=== PATIENT | female | born 1955 | race Caucasian/White ===

== ENCOUNTER 2017-10-20 11:01 | Day surgery (SDC) | payer OTHER ==
[~2017-10-20] VITALS: Ht 170.2 cm; Wt 89.8 kg
[~2017-10-20 11:01] MED LIST: ALBU0.63 NEB; AMLO5TAB2 PO; ATOR40TA16 PO; FLUO40CA PO; FLUT50SP EACH NARE; FURO40TA PO; HYDR1CAP30 PO; LACT10SO PO; LEVO500T8 PO; LISI-519 PO; METO50TA PO; PANT40TA3 PO; SYMB160A INH; VENTAER INH
[2017-10-20] MEDS ORDERED: IOHEXOL 350 MG/ML 50 ML BTL (for Cath Lab) OTHER ONE (11:02)
[2017-10-20] MEDS ORDERED: SODIUM CHLOR 0.9% 1000 ML INJ 1,000 ML IV SCH (11:30)
[2017-10-20 11:50] VITALS: BP 117/72; PULSE 70; RESP 18; TEMP 98.2; O2SAT 96
[2017-10-20] MEDS ORDERED: XOPEAER4 INH (12:00)
[2017-10-20] MEDS ORDERED: RANI150T PO (12:00)
[2017-10-20] MEDS ORDERED: potassium PO (12:00)
[2017-10-20 12:04] LABS: AUTOMATED NEUTROPHIL # 2.8 TH/MM3 (1.8-7.7); BASOPHIL % 0.7 % (0.0-2.0); EOSINOPHIL # 0.2 TH/MM3 (0-0.4); EOSINOPHIL % 3.4 % (0.0-4.0); HEMATOCRIT 38.9 % (35.0-46.0); HEMOGLOBIN 13.2 GM/DL (11.6-15.3); LYMPH % 43.3 % (9.0-44.0); LYMPHOCYTE # 2.8 TH/MM3 (1.0-4.8); MEAN CELL VOLUME 93.1 FL (80.0-100.0); MEAN CORPUSCULAR HEMOGLOBIN 31.6 PG (27.0-34.0); MEAN CORPUSCULAR HGB CONC 33.9 % (32.0-36.0); MEAN PLATELET VOLUME 7.9 FL (7.0-11.0); MONOCYTE # 0.6 TH/MM3 (0-0.9); NEUT % 43.6 % (16.0-70.0); PLATELET COUNT 249 TH/MM3 (150-450); RED BLOOD COUNT 4.17 MIL/MM3 (4.00-5.30); WHITE BLOOD COUNT 6.4 TH/MM3 (4.0-11.0)
[2017-10-20 12:22] LABS: BICARBONATE 28.1 MEQ/L (21.0-32.0); CALCIUM 9.1 MG/DL (8.5-10.1); CREATININE 0.75 MG/DL (0.50-1.00)
[2017-10-20] MEDS ORDERED: HEPARIN-NS/PF FLUSH BAG 2,000 ML IV FLUSH ONE (12:55)
[2017-10-20] MEDS ORDERED: LIDOCAINE HCL 1% PF 30 ML VIAL ONE (12:58)
[2017-10-20] MEDS ORDERED: NITROGLYCERIN INJ 5 ML ONE (13:01)
[2017-10-20] MEDS ORDERED: VERAPAMIL HCL 5 MG/2 ML VIAL ONE (13:01)
[2017-10-20] MEDS ORDERED: HEPARIN SODIUM - IV 10,000 UNITS/10 ML VIAL ONE (13:01)
[2017-10-20] MEDS ORDERED: MIDAZOLAM HCL 2 MG/2 ML VIAL ONE (13:01)
--- NOTE | 2017-10-20 13:38 | CATHPROC ---
[facility] HIS Report Study Information Study Number Admission Scheduled Start Study Start [id number] Oct 20 2017 11:01AM 10/20/2017 Oct 20 2017 12:37PM [facility] Cardiac Catheterization Admit Source Facility Department Other [facility]cher Physician and Clinical Staff Initial Naa Jones Post Tensioning Ironworker Eric Barrientos,AMY Post Tensioning Ironworker Anitra Farias BSN Recorder Leah Martell ,RT(R) Recorder Enrique Merida,RT(R) Scrub Masoud Oquendo RCIS(BS) Procedures Performed Procedure Location (Site) Vessel Name Coronary Angiograms LCA Left Coronary Coronary Angiograms RCA Right Coronary L Heart Cath Wire insertion Radial (right) Radial Art. Equipment Time Engineering Mgr Description Size Mfg Part Number Used/Scraped TRANSDUCER, TRUWAVE [id number] 12:43 DIEHL HART * Used W/STOCKCOCK *[id number] *[id number] 12:43 [employer] PACK, CCL CUSTOM * Used *[id number] 12:43 [employer] SUPPORT, ARTERIAL ADULT 77797 *[id number] Used [id number] 12:43 [employer] PACER PEN, SKIN DUAL W/ RULER * Used *[id number] BAND, RADIAL COMPRESSION TR [id number] 13:29 [employer] MEDICAL 29CM Used LARGE 29 *[id number] 12:43 [employer] WIRE, EXCHANGE 260CM 3MMJ 260CM Used *[id number] 12:43 NAMIC MANIFOLD, 4 PORT * Used *[id number] 12:43 NAMIC TUBING, HIGH PRESSURE 20" 20" Used *[id number] 12:43 NYCOMED OMNIPAQUE, 350 MG, 150ML 150ML [id number] Used [id number] 12:43 [employer] MED[employer] BLANKET,WARM AIR CCL * Used *[id number] CATHETER, FR5 OPTITORQUE [id number] 13:21 [employer] FR 5 Used RADIAL TIG 4.0 *[id number] SHEATH, FR6 TRANSRADIAL RM*[id number] 12:43 [employer] FR 6 Used SLENDER 10CM *[id number] History: Current Medications Medication Dosage/Unit Route Frequency Last Date/Time Taken Statins (any) LISINOPRIL LOPRESSOR History: Allergies Allergy Reaction codeine History: Risk Factors Family History of Hypertension Dyslipidemia Previous PR Previous Heart Failure Premature CAD Yes Yes Yes No Yes Prior Valve Prior PCI Prior CABG Surgery No No No Cerebrovascular Peripheral Artery Chronic Lung On Dialysis Diabetes Disease Disease Disease No No No Yes No History: Risk Factors Selection Items Current Smoker History: Symptoms/Diagnosis Selection Items SOB History: Stress Tests Stress or Imaging Studies Performed No History: Other Disease Selection Items COPD Gerd HTN History: Other Current Smoker Method Packs a Day Years Used Pack Years Yes Cigarettes 1 45 45 Labs Hgb (g/dl) Hct (%) RBC (MIL/MM3) WBC (l/cumm) Platelets (thousands) 11.60-17.00 35.00-51.00 4.00-5.90 4.00-11.00 150.00-450.00 13.2 38.9 4.1 6.4 249 Glucose (mg/dl) BUN (mg/dl) Creatinine (mg/dl) BUN:Creatinine (1:x) 74.00-106.00 7.00-18.00 0.50-1.30 10.00-20.00 100 14 0.7 20 Na (meq/l) K (meq/l) Cl (meq/l) CO2 (mmol/L) Ca (mg/dl) 136.00-145.00 3.50-5.10 98.00-107.00 21.00-32.00 8.50-10.10 140 4 105 28.1 9.1 PT (sec) PTT (sec) INR (PTT:PT) 9.80-11.60 24.30-30.10 0.90-1.10 10 28 1 CPK-MB (ng/ML) 0.50-3.60 Not Drawn Medication Medication Total Dose (Bolus/Oral) Medication Total Dosage/Unit 1% XYLOCAINE 5 mL FENTANYL 25 mcg RADIAL COCKTAIL 5 mL (Bolus) VERSED 1 mg Medications (Bolus/Oral) Medication Time Given Dosage/Unit Administered By Reason VERSED 10/20/2017 1:18:09 PM 1 mg Eric Barrientos 1 mg VERSED given in lab by Eric Barrientos RN in Left Antecubital via Peripheral IV. 1% XYLOCAINE 10/20/2017 1:18:34 PM 5 mL Naa Boggs 5 mL 1% XYLOCAINE given in lab by Naa Boggs in Right Radial via Subcutaneous. Ntg 200mcg Verapamil 2.5mg Heparin RADIAL COCKTAIL 10/20/2017 1:19:51 PM 5 mL (Bolus) Naa Boggs 2500U 5 mL (Bolus) RADIAL COCKTAIL given in lab by Naa Boggs in Right Radial via Radial. Using [Solutio n Name]. Ordered by Naa Boggs. Reason: Ntg 200mcg Verapamil 2.5mg Heparin 2500U. FENTANYL 10/20/2017 1:22:08 PM 25 mcg Eric Barrientos 25 mcg FENTANYL given in lab by Eric Barrientos, RN in Left Antecubital via Peripheral IV. Ordered by Naa Boggs. Medication (Drip) Medication Time Given Dosage/Unit Concentration/Unit Diluent (ml) Solutio n IV Solutions 10/20/2017 12:50:17 PM 0 mL (IV) 500 NaCl .9 IV Solutions given in lab by Eric Barrientos RN in Left Antecubital via Peripheral IV. Pump/Drip Flow = 20 ml/hr using NaCl .9. Initial Case Assessment Cardiovascular HR Rhythm NIBP Chest Pain 73 Sinus 141/50 0 Edema Present Skin color Skin None Normal Warm Dry Circulatory - Right Pulses Dorsalis Pedis Femoral Radial 2 2 2 Scale (0,1,2,3,4,d) Scale (0,1,2,3,4,d) Neurological State Oriented to time-place- Alert Moves all extremities person Respiration - General Respiration Rate SpO2 (%) O2 (lpm) (B/min) 12 96 0 Final Case Assessment Cardiovascular HR Rhythm NIBP Chest Pain 74 Sinus 129/76 0 Edema Present Skin color Skin None Normal Warm Dry Circulatory - Right Pulses Dorsalis Pedis Femoral Radial 2 2 2 Scale (0,1,2,3,4,d) Scale (0,1,2,3,4,d) Neurological State Oriented to time-place- Alert Moves all extremities person Respiration - General Respiration Rate SpO2 (%) O2 (lpm) (B/min) 31 93 0 Chronological Log Time Study Chronological Log 12:47:18 Patient arrived via Bed. 12:48:25 Patient Name, D.O.B, / Armband Verified By R.N. 12:48:26 Pre-op and post- op instructions given; patient acknowledges understanding of instructions. 12:48:27 Verbal Stimulation=2 Physical Stimulation=2 Airway=2 Respiration=2 TOTAL=8. (0=absent, 1=li mited, 2=present) 12:49:42 Presedation assessment performed by [facility] [employer] [facility] RN. 12:49:44 Allens test performed on the right radial and ulnar artery. 12:49:46 Patient has been NPO for More than 6Hrs. 12:49:48 Skin Breakdown- none per patient. 12:49:58 Patient Warmer Placed on the Table. 12:50:00 Cu[place]htemoc Prominences Protected 12:50:01 A # 20 IV was noted in the Antecubital (left). Grade = 0 IV Solutions given in lab by Eric Barrientos, AMY in Left Antecubital via Peripheral IV. Pump/Dri p Flow = 20 ml/hr using 12:50:17 NaCl .9. 12:50:18 History and physical on the chart or being dictated. Assessment: Initial Case, HR=73 BPM, Rhythm=Sinus, TLXZ=119/50 mmhg, Chest Pain=0, Edema=None, Color=Normal, Skin = Warm, Dry 12:50:41 Right Pulses: Raymundo Ped=2, Femoral=2, Radial=2 Neurological: State=Alert, Ox3, ROCK Respiration: Resp=12 B/min, SpO2=96 %, O2=0 lpm Vitals capture started with the following parameters, Patient=Adult, Interval=5 min, Initial Pr udqqpn=729 mmHg, 12:56:11 Deflation Rate=5 mmHg, Cuff placed on Left Arm 12:56:13 Reference ECG taken 12:56:52 HR=75 bpm, TFUM=539/50 mmhg, SpO2=96.0 %, Resp=12 B/min, Pain=0, Tanya=10, Lynn=2 13:00:43 Left Radial and groin(s) prepped with 2% chlorhexidine, and draped after a 3 min. waiting t rangel. 13:01:43 HR=72 bpm, NRSQ=678/90 mmhg, SpO2=97.0 %, Resp=13 B/min, Pain=0, Tanya=10, Lynn=2 13:05:48 Pressure channel 1 zeroed. 13:06:48 HR=71 bpm, RLSO=046/81 mmhg, SpO2=97.0 %, Resp=15 B/min, Pain=0, Tanya=10, Lynn=2 13:06:57 MD paged 13:11:49 HR=70 bpm, GLKZ=274/86 mmhg, SpO2=97.0 %, Resp=17 B/min, Pain=0, Tanya=10, Lynn=2 13:13:43 MD arrived. 13:16:44 HR=68 bpm, NVQS=342/81 mmhg, SpO2=96.0 %, Resp=20 B/min, Pain=0, Tanya=10, Lynn=2 Time Out. Correct patient, correct procedure, correct physician, power injector not loaded with contrast with surgical 13:17:55 team present. Time Out Concurred by MD and individual staff in procedure. 13:18:08 Case Start 13:18:09 1 mg VERSED given in lab by Eric Barrientos, RN in Left Antecubital via Peripheral IV. 13:18:34 5 mL 1% XYLOCAINE given in lab by Naa Boggs in Right Radial via Subcutaneous. 13:19:32 Access site was Radial Artery. A SHEATH, FR6 TRANSRADIAL SLENDER 10CM FR 6 was advanced into the Radial (right) using the Perc utaneous 13:19:39 technique. 5 mL (Bolus) RADIAL COCKTAIL given in lab by Naa Boggs in Right Radial via Radial. Using [S olution Name]. Ordered 13:19:51 by Naa Boggs. Reason: Ntg 200mcg Verapamil 2.5mg Heparin 2500U. A CATHETER, FR5 OPTITORQUE RADIAL TIG 4.0 FR 5 was advanced over a wire. OMNIPAQUE, 350 MG, 150 ML 150ML 13:20:41 was used for injections. 13:21:45 HR=76 bpm, QNXF=448/85 mmhg, SpO2=95.0 %, Resp=14 B/min, Pain=0, Tanya=10, Lynn=2 13:21:58 The LCA was injected and visualized at various angles. contrast used. 13:22:08 25 mcg FENTANYL given in lab by Eric Barrientos, RN in Left Antecubital via Peripheral IV. O rdered by Naa Boggs. Recorded Pressure: Ao, HR=82, Condition=Condition 1 13:22:40 (Aorta) Ao 120/77/97 After removing the current catheter a JR 5.0 INFINITI CATHETER FR 6 was advanced over a WIRE, E XCHANGE 260CM 13:24:31 3MMJ 260CM. 13:25:53 The RCA was injected and visualized at various angles. OMNIPAQUE, 350 MG, 150ML 150ML use d. 13:26:46 HR=77 bpm, ABAM=068/76 mmhg, SpO2=92.0 %, Resp=19 B/min, Pain=0, Tanya=10, Lynn=2 13:26:55 A WIRE, EXCHANGE 260CM 3MMJ 260CM was inserted via Radial (right). Recorded Pressure: LV, HR=79, Condition=Condition 1 13:27:36 (Left Ventricle) LV 112/5/13 Recorded Pressure: LV, Ao, HR=78, Condition=Condition 1 13:27:57 (Left Ventricle) LV 112/5/13, (Aorta) Ao 111/62/86 13:28:12 Catheter was removed 13:28:51 Case End Assessment: Final Case, HR=74 BPM, Rhythm=Sinus, CYLF=922/76 mmhg, Chest Pain=0, Edema=None, Color=Normal, Skin = Warm, Dry 13:29:17 Right Pulses: Raymundo Ped=2, Femoral=2, Radial=2 Neurological: State=Alert, Ox3, ROCK Respiration: Resp=31 B/min, SpO2=93 %, O2=0 lpm 13:30:12 No case complications noted. 13:30:13 Cine recording checked. 13:30:52 Bedside Report will be given. 13:31:17 A Left Heart Cath was performed. 13:31:45 HR=70 bpm, BTKP=976/76 mmhg, SpO2=92.0 %, Resp=19 B/min, Pain=0, Tanya=10, Lynn=2 13:33:55 Vitals capture stopped. 13:35:39 [facility] - Contrast Media Used In Study Contrast Total Opened (mL) Total Used (mL) Total Wasted (mL) Omnipaque 150 30 120 End Study - Maximum Contrast Load Max Contrast Load (mL) 641.6 End Study - Radiation Exposure Fluoro Time (minutes) 3.8 End Study - Patient Disposition Complications Transferred To Interventional Outcome No Outpatient Bed No attempt made
[2017-10-20] MEDS ORDERED: SODIUM CHLOR 0.9% 1000 ML INJ 400 ML IV ONE (13:45)
--- NOTE | 2017-10-20 13:47 | MA ---
cc: Naa Boggs MD DATE: 10/20/2017 REASON FOR CATHETERIZATION: Persistent chest pain. INDICATIONS FOR PROCEDURE: This is a 62-year-old with history of a thoracic aortic aneurysm and chest pain and positive stress test for ischemia. PROCEDURE: Left heart catheterization angiogram, left ventriculogram. METHOD: After obtaining informed consent, the patient in the fasting state was brought to the catheterization laboratory technician. The right radial area was sterilized, draped with sterile drapes, 1% Xylocaine used to locally anesthetize the area . A 6-Turkish sheath was used to access the radial artery, [place] catheter to intubate the left main, intubate the right coronary artery with the JR4 and also JR4 diagnostic used to perform left ventriculogram and the pressure measurements. At the end of the procedure, TR band was applied after taking the sheath out. She was sent back to her room in stable condition. No complications. I. CORONARY ANGIOGRAM. Left main coronary artery is a medium-sized vessel, bifurcates into LAD, left circumflex coronary artery. The left main has no significant disease. Left anterior descending coronary artery and its branches with no significant disease. Left circumflex coronary artery and branches with no significant disease. Right coronary artery is a large vessel, dominant, with no significant disease. II. LEFT VENTRICULOGRAM: Ejection fraction estimated to be 60%. No significant pressure gradient across the aortic valve. Left ventricular end-diastolic pressure of 14, aortic pressure 130/70. PLAN: Medical management to continue. POSTOPERATIVE DIAGNOSIS: No significant coronary artery disease. Preserved systolic performance of the left ventricle. MD ORI Hurley/MARY , 01:31 PM , 01:46 PM
--- NOTE | 2017-10-21 16:16 | EKG ---
Date Performed: 10/20/2017 Time Performed: 11:44:30 PTAGE: 62 years EKG: Sinus rhythm Left axis deviation Abnormal ECG NO PREVIOUS TRACING DOCTOR: Juan Kasper Interpretating Date/Time 10/21/2017 16:11:42
== END 2017-10-20 16:47 | disposition home or self-care (01) ==
LOC: HDIC 11:01 → HDOC 11:01
PROVIDERS: ATTEND Internal Medicine Cardiovascular Disease
DX: R07.9 Chest pain, unspecified (principal); I10 Essential (primary) hypertension; E78.5 Hyperlipidemia, unspecified; J44.9 Chronic obstructive pulmonary disease, unspecified
CPT/HCPCS: 80048; 85025; 85610; 85730; 93005; 93458; 99152; C1769; C1893; J1644; J2250; J3010; Q9967